=== PATIENT | female | born 1980 | race African-American/Black ===

== ENCOUNTER 2019-04-09 14:03 | Outpatient (CLI) | payer BC, OTHER ==
[~2019-04-09] VITALS: Ht 180.3 cm; Wt 140.9 kg
[2019-04-09 14:35] VITALS: BP 126/76
== END 2019-04-09 16:30 | disposition home or self-care (01) ==
LOC: LDOP 14:03
PROVIDERS: ATTEND Obstetrics & Gynecology
DX: O09.523 Supervision of elderly multigravida, third trimester (principal); Z3A.34 34 weeks gestation of pregnancy
CPT/HCPCS: 59025; 76819; 99211; G0463

== ENCOUNTER 2019-04-28 13:10 | Inpatient (IN) | payer OTHER ==
[~2019-04-28] VITALS: Ht 170.2 cm; Wt 148.0 kg
[2019-04-28] MEDS ORDERED: OXYTOCIN 30U/ 0.9% NaCL 500ML 500 ML IV ONE (13:14)
[2019-04-28] MEDS ORDERED: CALCIUM CARBONATE 500 MG TAB.CHEW PO PRN (13:30)
[2019-04-28] MEDS ORDERED: SODIUM CITRATE/CITRIC ACID 30 ML UDC PO PRN (13:30)
[2019-04-28] MEDS ORDERED: SODIUM CHLORIDE FLUSH 10ML SYR IVF PRN (13:30)
[2019-04-28] MEDS ORDERED: MISOPROSTOL 25 MCG TABLET VG PRN (13:30)
[2019-04-28] MEDS ORDERED: ONDANSETRON 2MG/ML, 2ML IVPush PRN (13:30)
[2019-04-28] MEDS ORDERED: ALUMINUM/MAG/SIMETHICONE 30 ML UDC PO PRN (13:30)
[2019-04-28] MEDS ORDERED: TERBUTALINE 1 MG/ML, 1ML IVPush PRN (13:30)
[2019-04-28] MEDS ORDERED: TERBUTALINE 1 MG/ML, 1ML SQ PRN (13:30)
[2019-04-28 13:37] LABS: BASOPHILS # (AUTO) 0.02 x10^3/uL (0-0.1); BASOPHILS % (AUTO) 0 % (0-1); EOSINOPHILS # (AUTO) 0.04 x10^3/uL (0-0.4); EOSINOPHILS % (AUTO) 1 % (1-7); LYMPHOCYTES # (AUTO) 1.43 x10^3/uL (1-3.4); LYMPHOCYTES % (AUTO) 17 % (22-44); MD NO; MEAN CORPUSCULAR HEMOGLOBIN 31.9 pg (27.0-34.8); MEAN CORPUSCULAR HGB CONC 33.6 g/dL (32.4-35.8); MEAN CORPUSCULAR VOLUME 94.8 fL (80-100); MEAN PLATELET VOLUME 8.7 fL (7.4-10.4); MONOCYTES # (AUTO) 0.33 x10^3/uL (0.2-0.8); MONOCYTES % (AUTO) 4 % (2-9); NEUTROPHILS # (AUTO) 6.68 x10^3/uL (1.8-6.8); NEUTROPHILS % (AUTO) 79 % (42-75); PLATELET COUNT 179 x10^3/uL (130-400); RED BLOOD COUNT 4.37 x10^6/uL (3.82-5.3); RED CELL DISTRIBUTION WIDTH 15.4 % (9.6-15.2)
[2019-04-28] MEDS ORDERED: NEWBORN KIT ONE (13:43)
[2019-04-28] MEDS ORDERED: LIDOCAINE 1%, 20ML ONE (13:43)
[2019-04-28] MEDS ORDERED: OXYTOCIN 30U/ 0.9% NaCL 500ML 500 ML ONE (13:44)
[2019-04-28] MEDS ORDERED: MISOPROSTOL 200 MCG TABLET ONE (13:44)
[2019-04-28] MEDS ORDERED: MISOPROSTOL 25 MCG TABLET ONE ×3 (13:44→23:58)
[2019-04-28 13:48] LABS: ALANINE AMINOTRANSFERASE 26 U/L (12-78); ALBUMIN 2.6 g/dL (3.4-5.0); ANION GAP 5 mmol/L (5-15); CALCIUM 8.8 mg/dL (8.5-10.1); CHLORIDE 109 mmol/L (98-107); CREATININE 0.63 mg/dL (0.55-1.02)
[2019-04-28 13:51] LABS: ALKALINE PHOSPHATASE 84 U/L (45-117); BILIRUBIN, DIRECT 0.1 mg/dL (0.1-0.2); BILIRUBIN,TOTAL 0.5 mg/dL (0.2-1.0); TOTAL PROTEIN 7.1 g/dL (6.4-8.2)
[2019-04-28] MEDS: LACTATED RINGERS 1,000 ML IV SCH ×2 (13:53→21:14)
[2019-04-28] MEDS: MISOPROSTOL 25 MCG TABLET VG PRN ×2 (14:00→18:25)
[2019-04-28] MEDS ORDERED: PLEASE ENTER HEIGHT AND WEIGHT MC SCH (14:00)
[2019-04-28 15:22] LABS: MICROSCOPIC NOT IND
[2019-04-28 15:46] LABS: CREATININE,URINE RANDOM 69.5 mg/dL
[2019-04-29] MEDS: MISOPROSTOL 25 MCG TABLET VG PRN
[2019-04-29] MEDS ORDERED: MISOPROSTOL 25 MCG TABLET ONE (05:45)
[2019-04-29] MEDS ORDERED: FENTANYL PF 100 MCG/2ML ONE ×3 (06:16→08:11)
[2019-04-29] MEDS: FENTANYL PF 100 MCG/2ML IVPush PRN ×3 (06:18→08:14)
[2019-04-29] MEDS ORDERED: OXYTOCIN 30U/ 0.9% NaCL 500ML 500 ML IV PRN (06:19)
[2019-04-29] MEDS: OXYTOCIN 30U/ 0.9% NaCL 500ML 500 ML IV PRN ×2 (06:24→23:02)
[2019-04-29] MEDS: LACTATED RINGERS 1,000 ML IV SCH ×2 (07:17→14:52)
[2019-04-29] MEDS ORDERED: FENTANYL/BUPIV./NS/PF 250 ML EPIDCONT SCH ×2 (07:37→11:43)
[2019-04-29] MEDS ORDERED: LACTATED RINGERS 1,000 ML IVBOLUS PRN ×2 (08:00→12:00)
[2019-04-29] MEDS ORDERED: FENTANYL PF 500 MCG, BUPIVACAINE/PF 0.5%, 30ML 62.5 ML in SODIUM CHLORIDE 0.9% 177.5 ML EPIDCONT SCH (08:30)
[2019-04-29] MEDS ORDERED: niFEDipine ER 30 MG TABLET.ER ONE (08:56)
[2019-04-29] MEDS: niFEDipine ER 30 MG TABLET.ER PO SCH (08:58)
[2019-04-29] MEDS ORDERED: NALOXONE 0.4 MG/ML, 1ML IVPush PRN (12:00)
[2019-04-29] MEDS ORDERED: EPHEDRINE 50 MG/ML, 1ML IVPush PRN (12:00)
[2019-04-29] MEDS: D5%-LACTATED RINGERS 1,000 ML IV SCH (20:00)
[2019-04-29] MEDS ORDERED: OXYTOCIN 30U/ 0.9% NaCL 500ML 500 ML ONE (22:52)
[2019-04-30] MEDS ORDERED: ACETAMINOPHEN 325 MG TABLET ONE (04:18)
[2019-04-30] MEDS: D5%-LACTATED RINGERS 1,000 ML IV SCH (04:30)
[2019-04-30] MEDS ORDERED: ACETAMINOPHEN 325 MG TABLET PO ONE (05:00)
[2019-04-30] MEDS ORDERED: FENTANYL/BUPIV./NS/PF 250 ML EPIDCONT SCH (07:01)
[2019-04-30] MEDS ORDERED: LACTATED RINGERS 1,000 ML IV SCH (07:01)
[2019-04-30] MEDS ORDERED: ONDANSETRON 2MG/ML, 2ML ONE (07:11)
[2019-04-30] MEDS ORDERED: EPHEDRINE 50 MG/ML, 1ML IVPush PRN (07:30)
[2019-04-30] MEDS ORDERED: LACTATED RINGERS 1,000 ML IVBOLUS PRN (07:30)
[2019-04-30] MEDS ORDERED: NALOXONE 0.4 MG/ML, 1ML IVPush PRN (07:30)
[2019-04-30] MEDS ORDERED: FENTANYL PF 100 MCG/2ML ONE (07:53)
[2019-04-30] MEDS ORDERED: AZITHROMYCIN 500 MG in SODIUM CHLORIDE 0.9% 250 ML IV ONE (08:00)
[2019-04-30] MEDS ORDERED: SODIUM CITRATE/CITRIC ACID 30 ML UDC ONE (08:05)
[2019-04-30] MEDS ORDERED: niFEDipine ER 30 MG TABLET.ER ONE (08:05)
[2019-04-30] MEDS ORDERED: METOCLOPRAMIDE 5 MG/ML, 2ML ONE (08:05)
[2019-04-30] MEDS: niFEDipine ER 30 MG TABLET.ER PO SCH (08:08)
[2019-04-30] MEDS ORDERED: METOCLOPRAMIDE 5 MG/ML, 2ML IV ONE (08:30)
[2019-04-30] MEDS ORDERED: LACTATED RINGERS 1,000 ML IVBOLUS ONE (08:30)
[2019-04-30] MEDS ORDERED: MORPHINE SULFATE 4 MG/ML, 1ML IVPush PRN (09:00)
[2019-04-30] MEDS ORDERED: MISOPROSTOL 200 MCG TABLET SL PRN (09:00)
[2019-04-30] MEDS ORDERED: ONDANSETRON 2MG/ML, 2ML IV PRN (09:00)
[2019-04-30] MEDS ORDERED: DIPH,PERTUSS(ACELL),TET VAC/PF NC IM-VACC PRN (09:00)
[2019-04-30] MEDS ORDERED: OXYcodone IR 5MG TABLET PO PRN (09:00)
[2019-04-30] MEDS ORDERED: ACETAMINOPHEN 325 MG TABLET PO PRN (09:00)
[2019-04-30] MEDS ORDERED: METOCLOPRAMIDE 5 MG/ML, 2ML IV PRN (09:00)
[2019-04-30] MEDS ORDERED: CALCIUM CARBONATE 500 MG TAB.CHEW PO PRN (09:00)
[2019-04-30] MEDS ORDERED: EPHEDRINE 50 MG/ML, 1ML ONE (09:15)
[2019-04-30] MEDS ORDERED: PHENYLEPHRINE 10 MG/ML ONE (09:15)
[2019-04-30] MEDS ORDERED: OXYTOCIN 10 UNITS/ML, 1ML ONE (09:15)
[2019-04-30] MEDS ORDERED: CEFAZOLIN 1,000 MG ONE ×2 (09:15→09:16)
[2019-04-30] MEDS ORDERED: WATER-INJECTION,STERILE 10 ML IV ONE (09:15)
[2019-04-30] MEDS ORDERED: LIDOCAINE-MPF 2% ,5ML ONE (09:15)
[2019-04-30] MEDS ORDERED: BUPIVACAINE/PF 0.25% ONE (09:15)
[2019-04-30] MEDS ORDERED: morphine SULFATE/PF 0.5 MG/ML, 10ML ONE (09:16)
[2019-04-30 09:25] VITALS: BP 125/81
[2019-04-30 10:41] VITALS: BP 119/67
[2019-04-30 12:05] VITALS: BP 135/83
[2019-04-30] MEDS ORDERED: morphine SULFATE 10 MG/ML, 1ML ONE (12:09)
[2019-04-30] MEDS: LACTATED RINGERS 1,000 ML IV SCH ×5 (12:21→20:55)
[2019-04-30 14:44] VITALS: BP 124/74
[2019-04-30 15:10] VITALS: BP 139/81
[2019-04-30 17:51] LABS: BASOPHILS % (AUTO) 0 % (0-1); EOSINOPHILS # (AUTO) 0.01 x10^3/uL (0-0.4); EOSINOPHILS % (AUTO) 0 % (1-7); LYMPHOCYTES # (AUTO) 1.42 x10^3/uL (1-3.4); LYMPHOCYTES % (AUTO) 8 % (22-44); MD NO; MEAN CORPUSCULAR HGB CONC 33.3 g/dL (32.4-35.8); MEAN CORPUSCULAR VOLUME 96.2 fL (80-100); MEAN PLATELET VOLUME 9.7 fL (7.4-10.4); MONOCYTES # (AUTO) 0.53 x10^3/uL (0.2-0.8); MONOCYTES % (AUTO) 3 % (2-9); NEUTROPHILS # (AUTO) 15.81 x10^3/uL (1.8-6.8); NEUTROPHILS % (AUTO) 89 % (42-75); PLATELET COUNT 142 x10^3/uL (130-400); RED BLOOD COUNT 3.82 x10^6/uL (3.82-5.3)
[2019-04-30 20:25] VITALS: BP 120/79
[2019-04-30] MEDS: DOCUSATE 100 MG CAPSULE PO SCH ×2 (20:40→21:01)
[2019-04-30] MEDS: PRENATAL VIT/IRON/FA 1 EACH TABLET PO SCH (20:41)
[2019-04-30] MEDS: KETOROLAC 30 MG/1 ML IV SCH ×3 (20:41→21:00)
[2019-04-30] MEDS: OXYTOCIN 30U/ 0.9% NaCL 500ML 500 ML IV SCH ×2 (20:54→20:55)
[2019-04-30] MEDS: OXYcodone IR 5MG TABLET PO PRN (21:01)
[2019-04-30] MEDS ORDERED: DIPHENHYDRAMINE 50 MG/ML, 1ML ONE (23:46)
[2019-04-30] MEDS: DIPHENHYDRAMINE 50 MG/ML, 1ML IVPush PRN (23:49)
[2019-05-01] MEDS: LACTATED RINGERS 1,000 ML IV SCH ×5 (00:39→16:39)
[2019-05-01] MEDS: OXYcodone IR 5MG TABLET PO PRN (01:15)
[2019-05-01] MEDS: DIPHENHYDRAMINE 50 MG/ML, 1ML IVPush PRN (03:34)
[2019-05-01] MEDS: KETOROLAC 30 MG/1 ML IV SCH (03:34)
[2019-05-01 03:40] VITALS: BP 122/84
[2019-05-01] MEDS: OXYTOCIN 30U/ 0.9% NaCL 500ML 500 ML IV SCH ×2 (04:39→14:39)
[2019-05-01] MEDS ORDERED: OXYcodone/APAP 5/325MG TABLET PO PRN (06:30)
[2019-05-01 08:30] VITALS: BP 126/84
[2019-05-01] MEDS: PRENATAL VIT/IRON/FA 1 EACH TABLET PO SCH (08:59)
[2019-05-01] MEDS: FERROUS SULFATE 325 MG TABLET PO SCH ×2 (09:01→17:47)
[2019-05-01] MEDS: DOCUSATE 100 MG CAPSULE PO SCH ×2 (09:02→21:25)
[2019-05-01] MEDS: niFEDipine ER 30 MG TABLET.ER PO SCH (09:02)
[2019-05-01] MEDS: SIMETHICONE 80 MG CHEW TAB PO PRN ×2 (09:02→17:47)
[2019-05-01] MEDS: OXYcodone/APAP 5/325MG TABLET PO PRN ×3 (09:03→21:24)
[2019-05-01] MEDS: KETOROLAC 30 MG/1 ML IVPush SCH ×3 (11:09→17:47)
[2019-05-01 12:00] VITALS: BP 121/78
[2019-05-01 16:45] VITALS: BP 113/78
[2019-05-01] MEDS: IBUPROFEN 800 MG TABLET PO PRN (17:58)
[2019-05-01 19:50] VITALS: BP 103/67
[2019-05-02] MEDS: LACTATED RINGERS 1,000 ML IV SCH ×6 (00:39→20:39)
[2019-05-02] MEDS: OXYTOCIN 30U/ 0.9% NaCL 500ML 500 ML IV SCH ×3 (00:39→20:39)
[2019-05-02] MEDS: OXYcodone/APAP 5/325MG TABLET PO PRN ×2 (02:16→09:23)
[2019-05-02] MEDS: IBUPROFEN 800 MG TABLET PO PRN ×3 (02:16→20:49)
[2019-05-02 05:00] VITALS: BP 113/72
[2019-05-02] MEDS: PRENATAL VIT/IRON/FA 1 EACH TABLET PO SCH (09:00)
[2019-05-02 09:15] VITALS: BP 135/87
[2019-05-02] MEDS: niFEDipine ER 30 MG TABLET.ER PO SCH (09:23)
[2019-05-02] MEDS: FERROUS SULFATE 325 MG TABLET PO SCH ×2 (09:23→17:19)
[2019-05-02] MEDS: DOCUSATE 100 MG CAPSULE PO SCH ×2 (09:23→20:49)
[2019-05-02 20:20] VITALS: BP 120/80
[2019-05-03] MEDS: LACTATED RINGERS 1,000 ML IV SCH ×2 (00:39→05:55)
[2019-05-03] MEDS: OXYTOCIN 30U/ 0.9% NaCL 500ML 500 ML IV SCH (05:55)
[2019-05-03 07:40] VITALS: BP 144/93
[2019-05-03] MEDS ORDERED: OXYC-302 PO (09:42)
[2019-05-03] MEDS ORDERED: IBUP-1222 PO (09:43)
[2019-05-03] MEDS ORDERED: DOCU-131 PO (09:44)
[2019-05-03] MEDS: PRENATAL VIT/IRON/FA 1 EACH TABLET PO SCH (10:09)
[2019-05-03] MEDS: DOCUSATE 100 MG CAPSULE PO SCH (10:09)
[2019-05-03] MEDS: niFEDipine ER 30 MG TABLET.ER PO SCH (10:09)
[2019-05-03] MEDS: FERROUS SULFATE 325 MG TABLET PO SCH (10:09)
== END 2019-05-03 10:40 | disposition home or self-care (01) | DRG 787 ==
LOC: LDIP 13:10 → 2NW 04-30 11:52 → 2NE 04-30 12:09 → 2NW 04-30 14:52
PROVIDERS: ADMIT Obstetrics & Gynecology; ATTEND Obstetrics & Gynecology
PROC: 10D00Z1 Extraction of Products of Conception, Low, Open Approach (ICD-10-PCS; principal; 2019-04-28)
PROC: 30233N1 Transfusion of Nonautologous Red Blood Cells into Peripheral Vein, Percutaneous Approach (ICD-10-PCS; 2019-04-30)
DX: O11.4 Pre-existing hypertension with pre-eclampsia, complicating childbirth (principal); O99.354 Diseases of the nervous system complicating childbirth; D25.9 Leiomyoma of uterus, unspecified; O34.13 Maternal care for benign tumor of corpus uteri, third trimester; O99.214 Obesity complicating childbirth; E66.01 Morbid (severe) obesity due to excess calories; G47.30 Sleep apnea, unspecified; O61.9 Failed induction of labor, unspecified; O72.1 Other immediate postpartum hemorrhage; Z37.0 Single live birth; Z3A.37 37 weeks gestation of pregnancy; Z79.82 Long term (current) use of aspirin; Z82.49 Family history of ischemic heart disease and other diseases of the circulatory system
CPT/HCPCS: 36415; J3490; J7121; 80053; 81003; 82248; 82570; 84156; 84550; 85025; 86592; 86850; 86900; 86923; G0378; J0456; J0690; J1885; J2274; J2405; J3010; J1200; J2270; J2370; J2590; J2765; J7050; J7120; P9016